=== PATIENT | male | born 1995 | race African-American/Black ===

== ENCOUNTER 2020-11-14 04:54 | Emergency (ER) | payer SELFPAY ==
[~2020-11-14] VITALS: Ht 175.3 cm; Wt 77.1 kg
[2020-11-14 05:09] VITALS: BP_SYST 133
--- NOTE | 2020-11-14 05:09 | NUR ---
Patient to ER bed [address] to [facility] for evaluation. Side rails up. Report given to GINNY PEREA
--- NOTE | 2020-11-14 05:23 | NUR ---
PATIENT AAOX4 AND AMBULATORY FROM HOME C/O RIGHT SIDED FACIAL ABCESS X2 DAYS. PER PATIENT HAD IT IN 2019 WAS PRESCRIBED ABT AND RESOLVED AND NOW CAME BACK. DENIES ANY DRAINAGE. DENIES ANY PAIN AT THIS TIME. VSS.
--- NOTE | 2020-11-14 05:36 | NUR ---
Dr. Ramos bedside for pt eval
[2020-11-14] MEDS ORDERED: AMOX500C2 PO ×2 (05:57→06:17)
[2020-11-14] MEDS ORDERED: IBUP-1969 PO ×2 (05:57→06:17)
[2020-11-14 06:05] VITALS: BP_SYST 133
--- NOTE | 2020-11-14 06:05 | NUR ---
Patient given written and verbal discharge instructions and verbalizes understanding. ER MD discussed with patient the results and treatment provided. Patient in stable condition. ID arm band removed. Rx of Amoxicillin and Ibuprofen given. Patient educated on pain management and to follow up with PMD. Pain Scale 0/10 Opportunity for questions provided and answered. Medication side effect fact sheet provided.
== END 2020-11-14 06:05 | disposition home or self-care (01) ==
LOC: SED 04:54
DX: K04.7 Periapical abscess without sinus (principal)
CPT/HCPCS: 99283